=== PATIENT | male | born 1960 | race Caucasian/White ===

== ENCOUNTER 2024-05-21 12:24 | Outpatient (CLI) | payer MEDICARE, SELFPAY ==
--- NOTE | 2024-05-21 12:31 | CA_ITS ---
APPROVED REPORT EXAM: Comprehensive 2D, Doppler, and color-flow Echocardiogram Photolithographic Stripper: TRAMAINE Sparks, RVS Ht: 5 ft 10 in Wt: 258lbs BSA: 2.33 BP: 147/75 mmHg Indications: Smoker, SOA, DM, HTN Echo Enhancing Agent Indication: Endocardial border delineation Agent(s) / Amount(s) Used: Definity 2 cc Comments: Technically limited exam due to patient factors and lung impedance 2D Dimensions IVSd 1.12 cm LVEF (Visual) 61.70 % PWd 1.01 cm LVEF (Louis's) 54.20 % LVDd 4.99 cm LV Volume 129.30 mL LVDs 3.33 cm LV Volume Index 55.262039 mL/m2 M: 34 - 74 Aortic Root 2.98 cm LA Volume 74.50 mL Left Atrium 3.61 cm LA Volume Index 31.439523 mL/m2 (M/F) 16-34 RVID Base (AP4) 4.08 cm (M/F) 2.5-4.1 EF AP4 60.50 % LVOT 1.99 cm (M/F) 1.5-2.5 EF AP2 45.8 % EF BP 54.2 % GL Strain -9.8 % M-Mode Dimensions LVDd 4.99 cm (3.5-5.7) Ao Diam 3.16 cm (2.0-3.7) LVDs 4.62 cm (3.5-5.7) IVSd 1.12 cm (0.6-1.1) PWd 1.01 cm (0.6-1.1) EF (Teich) 37.30% EPSs 1.13 cm FS 23.23% EDV (Teich) 156.80 mL TAPSE 1.82 (<1.7) ESV (Teich) 98.30 mL LV Diastology E Decel Time 242 (160-240 msec) E/A Ratio 0.88 MED E' 8.0 (>= 7 cm/sec) MED A' 9.10 cm/s E'/MED E' Ratio 8.69 (<= 14) LAT E' 6.6 (>= 10 cm/sec) LAT A' 9.10 cm/s E/LAT E' Ratio 10.53 (<= 14) Aortic Valve LVOT Max 110.0 (70-110 cm/s) GARRETT Index 0.97 cm2/m2 LVOT VTI 19.36 cm AoV Peak Abraham. 158.0 (50-130 cm/s) AO Peak GR. 11.00 mmHg AO Mean GR. 5.00 (<5 mmHg) AO VTI 26.6 (18-25 cm) GARRETT (VTI) 2.27 (2.5-4.5 cm2) Mitral Valve MV E Max Abraham. 69.0 (40-130 cm/s) MV A Velocity 79.0 (40-130 cm/s) E/A Ratio 0.88 MV Decel. Time 242 (160-240 ms) Left Ventricle The left ventricle is normal size. The left ventricular systolic function is normal. The left ventricular ejection fraction is within the normal range. There is increased LV wall thickness. The left ventricular diastolic function is normal. No left ventricle thrombus noted on this study. LVEF is 60%. Right Ventricle The right ventricle is normal size. The right ventricular systolic function is normal. Atria The left atrium size is normal. The right atrium size is normal. There is no Doppler evidence of interatrial shunt. Aortic Valve The aortic valve is mildly thickened. There is no aortic valvular stenosis. No aortic regurgitation is present. Mitral Valve The mitral valve is normal in structure. No evidence of mitral valve stenosis. Trace mitral regurgitation. Tricuspid Valve Tricuspid valve is grossly normal in structure and function. Trace tricuspid regurgitation. There is insufficient TR jet to estimate RVSP. Pulmonic Valve The pulmonary valve is normal in structure. Trace pulmonic regurgitation. Great Vessels The aortic root is normal in size. The ascending aorta is not well-visualized. IVC is normal in size and collapses >50% with inspiration. Pericardium There is no pericardial effusion. Other Information Study Quality: Technically Difficult Conclusion Technically difficult study due to poor acoustic windows. Normal biventricular systolic function. No significant valvular stenosis or regurgitation. Electronically signed by : Ramonita Patel MD 05/30/2024 00:54:49
--- NOTE | 2024-05-21 12:32 | US_ITS ---
FINAL REPORT CLINICAL HISTORY: claudication, Smoker, DM, HTN, HLD, Weak pedal pulses FINDINGS: LOWER EXTREMITY SEGMENTAL PRESSURE MEASUREMENTS FINDINGS: Pressure indices are as follows: RIGHT LOWER EXTREMITY: Thigh: 0.47 Calf: 0.39 Ankle, posterior tibial artery: 0.85 Ankle, dorsalis pedis: 0.69 Toe: 0.28 ALYSE: 0.85 Comments: Although pressure indices are increased more distally, this is most likely due to falsely elevated pressure indices. Values suggest advanced PVD. LEFT LOWER EXTREMITY: Thigh: 0.69 Calf: 0.69 Ankle, posterior tibial artery: Noncompressible Ankle, dorsalis pedis: 0.93 Toe: 0.42 ALYSE: 0.93 Comments: Although pressure indices are increased more distally, this is most likely due to falsely elevated pressure indices. Values suggest moderate PVD. IMPRESSION: Abnormal exam. Consider CTA runoff for further evaluation. Reviewed, Interpreted and Dictated by Rodrigo Vera MD Transcribed by Ginger Jacob Authenticated and . [facility]
[2024-05-21] MEDS: DEFINITY US ECHO CONTRAST 2ML INJ 2 MG IV (14:08)
== END 2024-05-21 23:59 | disposition home or self-care (01) ==
PROVIDERS: PCP Student in an Organized Health Care Education/Training Program; Visit Provider Physician Assistant
DX: R09.89 Other specified symptoms and signs involving the circulatory and respiratory systems (principal); I73.9 Peripheral vascular disease, unspecified; R60.0 Localized edema; I10 Essential (primary) hypertension; R06.00 Dyspnea, unspecified; R94.31 Abnormal electrocardiogram [ECG] [EKG]
CPT/HCPCS: 93306; 93923; Q9957

== ENCOUNTER 2024-05-26 13:18 | Outpatient (CLI) | payer MEDICARE, SELFPAY ==
[2024-05-26 14:06] LABS: Chloride 96 mmol/L (98-107); Potassium 4.7 mmoL/L (3.5-5.1); Sodium 132 mmol/L (136-145)
[2024-05-26 14:09] LABS: Anion Gap 12.7 mEq/L (5-15); Blood Urea Nitrogen 19 mg/dl (9-20); Carbon Dioxide 28 mmol/L (22.0-30.0); Estimated Glomerular Filt Rate 97 ml/min (>60); GFR (African American) 118 ML/MIN (>60); Glucose 389 mg/dl (74-100)
== END 2024-05-26 23:59 | disposition home or self-care (01) ==
LOC: LAB 13:19
PROVIDERS: Visit Provider Physician Assistant
DX: I73.9 Peripheral vascular disease, unspecified (principal); R68.89 Other general symptoms and signs; Z72.0 Tobacco use; M79.674 Pain in right toe(s); R94.31 Abnormal electrocardiogram [ECG] [EKG]; R06.09 Other forms of dyspnea; I10 Essential (primary) hypertension; R60.0 Localized edema
CPT/HCPCS: 80048

== ENCOUNTER 2024-06-17 12:42 | Outpatient (CLI) | payer MEDICARE, SELFPAY ==
--- NOTE | 2024-06-17 12:43 | CT_ITS ---
FINAL REPORT CLINICAL HISTORY: abnormal ALYSE, PAD COMPARISON: None FINDINGS: Post contrast axial imaging of the aorta and bilateral lower extremity was obtained and reviewed. This study was performed with techniques to keep radiation doses as low as reasonably achievable (ALARA). Individualized dose reduction techniques using automated exposure control or adjustment of mA and/or kV according to the patient's size were employed. There is no evidence of aortic aneurysm. There is no evidence of aortic stenosis, although mild atherosclerotic disease is noted in the abdominal aorta. The celiac axis, superior mesenteric artery and inferior mesenteric artery are patent without significant stenosis. There is no evidence of renal artery stenosis. There is atherosclerotic disease in the common iliac arteries bilaterally. There is mild to moderate atherosclerotic disease in the external iliac arteries bilaterally. The proximal right internal iliac artery is patent, however just distal to the first bifurcation a branch is occluded. Right: The common femoral artery is patent with moderate stenosis just proximal to the bifurcation. The profunda artery is patent without evidence of stenosis. The proximal superficial femoral artery contains a short segment with 70% stenosis. There is dense calcification in the superficial femoral artery that somewhat limits evaluation. In the mid and distal thigh, there is high-grade stenosis of the right superficial femoral artery. The popliteal artery is patent. There is three-vessel runoff to the ankle. Left: The left common femoral artery and profunda are patent without significant stenosis. The proximal left superficial femoral artery contains a moderate stenosis with at least 50% diameter stenosis in the thigh. The popliteal artery is patent. There is three-vessel runoff to the mid calf, with peroneal artery nonvisualization past the mid calf. Review of the remaining abdomen and pelvis demonstrates a small cystic focus measuring 14 mm in size in the tail of the pancreas, a finding of uncertain significance but follow-up dedicated CT, ultrasound, or MR would be helpful for further evaluation. This could represent a pseudocyst, although a cystic neoplasm is not excluded. There is no fluid collection or acute inflammatory process. IMPRESSION: Mild atherosclerotic disease in the external iliac arteries bilaterally. Moderate areas of stenosis in the right common femoral artery, with 70% stenosis in the proximal right superficial femoral artery. Dense calcified plaque somewhat limits evaluation of this area. There is high-grade stenosis in the mid and distal right thigh as well. There is moderate stenosis in the proximal left superficial femoral artery with at least 50% stenosis in the thigh. There is nonvisualization of the peroneal artery past the mid calf. There is a small cystic focus in the tail of the pancreas, 14 mm in size, that may represent a pseudocyst or cystic neoplasm. Correlation with other imaging modalities is suggested as described above. Reviewed, Interpreted and Dictated by Andie Lebron MD Transcribed by Priti Isidro Authenticated and [facility]
[2024-06-17] MEDS: 0.9 % SODIUM CHLORIDE 50 ML VIAL IV (13:40)
[2024-06-17] MEDS: SODIUM CHLORIDE 0.9% 10ML SYR (RAD ONLY) 10 ML IV (13:40)
[2024-06-17] MEDS: IOPAMIDOL-370 (76%);100ML BOTTLE 120 ML IV (13:40)
== END 2024-06-17 23:59 | disposition home or self-care (01) ==
LOC: RAD 12:43
PROVIDERS: Visit Provider Physician Assistant
DX: M79.674 Pain in right toe(s) (principal); R94.31 Abnormal electrocardiogram [ECG] [EKG]; I73.9 Peripheral vascular disease, unspecified; R06.09 Other forms of dyspnea; I10 Essential (primary) hypertension; R60.0 Localized edema; Z72.0 Tobacco use; R68.89 Other general symptoms and signs
CPT/HCPCS: 75635; Q9967

== ENCOUNTER 2024-06-29 14:15 | Observation (INO) | payer MEDICARE, SELFPAY ==
[2024-06-29] VITALS (18 sets, daily range): BP systolic 122–165; BP diastolic 57–113; PULSE 82–104; RESP 16–22; TEMP 36.5–37.1; O2SAT 90–100; BMI 37.3; BMI 36.5
--- NOTE | 2024-06-29 07:13 | IR_ITS ---
APPROVED REPORT Patient Location: Outpatient PROCEDURES Catheter placement in the abdominal aorta Abdominal aortography Repositioning of the catheter in the abdominal aorta Bilateral iliofemoral runoff Catheter placement in the right popliteal artery Right popliteal artery selective angiogram Intravascular lithotripsy to the right superficial femoral artery and right popliteal artery Drug-coated balloon angioplasty to the right popliteal artery and right superficial femoral artery INDICATION Abnormal ALYSE, Ellis claudication class III, Occluded right SFA and right popliteal artery Informed consent was obtained prior to the procedure. COMPLICATIONS NONE Estimated Blood Loss: LESS THAN 10 ML TECHNIQUE 1% lidocaine used to anesthetize the left femoral groin. The left femoral artery was accessed via the Seldinger technique. A 5 Vietnamese sheath is placed in the left femoral artery and a pigtail catheter was advanced to the abdominal aorta where abdominal aortography was performed. The catheter was then repositioned and bilateral iliofemoral runoff was performed. Following this a rim catheter was advanced to the abdominal aorta and used to cannulate the right common iliac artery where an advantage wire was advanced to the right superficial femoral artery. The short sheath was exchanged for a long 6 Vietnamese destination sheath. Therapeutic heparin was administered giving a therapeutic ACT and the advantage wire was advanced through the occlusion into the right popliteal artery. A trailblazer catheter was advanced over the advantage wire and the wire removed with selective angiography of the right SFA showing intraluminal placement of the catheter. Following this a 300 cm run-through wire was advanced and a 6 mm x 60 mm shockwave balloon was advanced and delivered at 5 and 6 maura for a total of 400 pulsations up and down the right SFA and right popliteal artery. Following this a 6 mm x 250 mm drug-coated balloon was deployed at 8 maura for 3 minutes in the right popliteal artery and right superficial femoral artery. An additional 6 mm x 40 mm drug-coated balloon was then advanced proximally overlapping where the first balloon was placed and then deployed at 10 maura. Following this the apparatus was removed the groin is reprepped closure change sheath was removed hemostasis was partially achieved with Angio-Seal device therefore manual pressure was delivered achieving good hemostasis and the patient was transferred to the postop putting in stable condition ANGIOGRAPHIC RESULTS This abdominal aorta is widely patent bilateral common iliac arteries have mild 10% atheromatous plaque while the bilateral internal iliac arteries are widely patent with mild 10 to 20% plaque. The bilateral external iliac arteries have 10 to 20% stenoses in the bilateral common femoral arteries are widely patent The right profunda femoris artery has proximal and mid vessel 50% stenosis while the right superficial femoral artery is severely diseased in the proximal segment with diffuse 80 to 90% stenoses and then occluded proximally. It reconstitutes and then the popliteal artery is patent and gives rise to severely diseased anterior tibialis artery posterior tibialis artery and peroneal arteries. There is reconstitution of the anterior and posterior tibialis artery with flow into the right foot The left profunda femoris artery is moderately and diffusely atheromatous. The left superficial femoral artery has proximal concentric 80% stenoses with 80 to 90% calcified stenoses throughout Warner's canal. The popliteal artery does receive inline flow and is widely patent. It gives rise to small caliber and diffusely diseased but patent anterior tibialis artery posterior tibialis artery and peroneal arteries. There is three-vessel runoff below the knee on the left side from small caliber diffusely diseased vessels IMPRESSION Peripheral artery disease as described above Successful intravascular lithotripsy followed by drug-coated balloon angioplasty of a chronically occluded right SFA and right popliteal artery Persistent severe disease in the left popliteal artery and superficial femoral artery as described above Infrageniculate small caliber diffuse disease PLAN 1. Aspirin and Plavix 2. LDL less than 55 achieved high intensity statin 3. Avoidance of tobacco products 4. Risk factor modification 5. Physical therapy with rehabilitation 6. In 2 to 4 weeks patient can be brought back to the [facility] and undergo repeat revascularization of the left SFA and left popliteal artery if he has persistent symptoms or if the left leg prohibits adequate ambulation now that the right leg has been revascularized Electronically signed by : Myron Snyder MD 06/30/2024 12:56:56
[2024-06-29 09:17] LABS: Basophils # 0.1 K/mm3 (0-0.2); Basophils % 0.7 % (0.1-2.0); Eosinophils # 0.2 K/mm3 (0.0-0.4); Eosinophils % 2.2 % (0.1-12.0); Hematocrit 44.3 % (42.0-52.0); Hemoglobin 14.8 g/dL (14.1-18.0); Lymphocytes # 1.5 K/mm3 (0.7-4.5); Lymphocytes % 15.2 % (10-50); Mean Corpuscular HGB Conc 33.4 g/dL (31.8-35.4); Mean Corpuscular Hemoglobin 30.4 pg (27.0-31.2); Mean Platelet Volume 9.6 fl (7.4-10.4); Monocytes # 0.8 K/mm3 (0.1-1.0); Monocytes % 7.9 % (1.7-9.3); Neutrophils # 7.3 K/mm3 (1.8-7.8); Neutrophils % 73.2 % (37.0-80.0); Platelet Count 235 K/mm3 (142-424); Red Blood Count 4.87 M/mm3 (4.60-6.20); Red Cell Distribution Width 12.6 % (11.5-17.5)
[2024-06-29 09:27] LABS: Chloride 99 mmol/L (98-107); Potassium 4.4 mmoL/L (3.5-5.1); Sodium 135 mmol/L (136-145)
[2024-06-29 09:30] LABS: Anion Gap 13.4 mEq/L (5-15); Blood Urea Nitrogen 16 mg/dl (9-20); Carbon Dioxide 27 mmol/L (22.0-30.0); Creatinine Clearance Estimated 124 mL/min (50-200); Estimated Glomerular Filt Rate 85 ml/min (>60); GFR (African American) 103 ML/MIN (>60); Glucose 309 mg/dl (74-100)
[2024-06-29] MEDS: FENTANYL 100MCG/2ML VIAL 50 MCG IV (11:33)
[2024-06-29] MEDS: MIDAZOLAM HCL 1MG/ML 5ML VIAL 1 MG IV (11:33)
[2024-06-29] MEDS: 0.9 % SODIUM CHLORIDE 500 ML 25 ML IV (11:34)
[2024-06-29] MEDS: LIDOCAINE 1% 10ML MDV 20 ML IJ (11:34)
[2024-06-29] MEDS: HEPARIN 1,000 UNITS/500ML NS (CATH LAB) 3000 UNIT IV (11:34)
[2024-06-29] MEDS: diphenhydrAMINE 50MG/ML VIAL 50 MG IV (11:34)
--- NOTE | 2024-06-29 14:28 | EXP.HP ---
History of Present Illness *Admission Date: 06/29/24 *Reason for visit:: Peripheral artery disease *History of present illness: 64-year-old male with diabetes and tobacco use disorder. Having PAD with claudication. Was brought in for elective lower extremity arteriogram with runoff due to recent CTA obtained showing moderate areas of stenosis in the common right femoral artery with 70% stenosis in the proximal right superficial femoral artery. High-grade stenosis also identified in mid and distal right thigh as well. Patient tolerated procedure well with improvement in blood flow to lower extremity. Due to bleeding in left groin and need for observation overnight, medicine consulted for admission and further management. On arrival to the floor, patient's is at bedside. He is in no acute distress. No active bleeding at this time. Hemodynamically stable. Laying flat on room air. [facility] Disclaimer: The information contained in this section may have been updated after the patient was seen, as this information can be updated by other users. Medical History Abnormal electrocardiogram [ECG] [EKG] Claudication Edema of both lower extremities HTN (hypertension) Type 2 diabetes mellitus Family History Mother Diabetes Brother Diabetes Social History Smoking Status: Current every day smoker tobacco type: cigarettes packs per day: 2 alcohol intake: current alcohol intake frequency: 3 or more drinks per day substance use type: denies use current occupational status: other Travel in the last 8 weeks: Inside the [place] marital status: Have you lived/traveled outside [place] in past 30 days?: No Contact w/someone who lives/traveled outside US past 30 days?: No Exposure to someone with infectious disease in past 14 days?: No Do you have a fever (greater than 100.4 F or 38 C)?: No Have you tested positive for COVID-19: No Exposed to someone with COVID-19 in past 14 days?: No Do you have a sore throat?: No Do you have a cough?: No Do you have any weakness?: No Do you have any diarrhea?: No Are you experiencing any unusual bleeding?: No Do you have any muscle aches/pain?: No Do you have any abdominal pain?: No Are you experiencing loss of taste or smell?: No Review of Systems Review of Systems Review of systems (narrative): 14 point review of systems performed, pertinent positives and negatives as per [facility] Meds Home Medications and Allergies Home Medications ?Medication ?Instructions ?Recorded ?Confirmed ?Type dapagliflozin propanediol 10 mg 10 mg PO DAILY 05/12/24 06/29/24 History tablet (Farxiga) furosemide 40 mg tablet (Lasix) 40 mg PO DAILY #30 tabs 05/12/24 06/29/24 Rx glipizide 10 mg tablet 10 mg PO BID 05/12/24 06/29/24 History hydrocodone 7.5 mg-acetaminophen 1 tab PO QID 05/12/24 06/29/24 History 325 mg tablet losartan 100 mg tablet 100 mg PO DAILY 05/12/24 06/29/24 History metformin 750 mg tablet,extended 750 mg PO BID 05/12/24 06/29/24 History release 24 hr potassium chloride 20 mEq 20 meq PO DAILY #30 tabs 05/12/24 06/29/24 Rx tablet,extended release rosuvastatin 5 mg tablet 5 mg PO DAILY 05/12/24 06/29/24 History New Prescriptions to Start Prescriptions: Allergies Allergy/AdvReac Type Severity Reaction Status Date / Time No Known Allergies Allergy Verified 06/23/24 14:57 Exam Data for Last 24 hours Vital signs and Labs for Last 24 Hours: Temp Pulse Resp BP Pulse Ox O2 Del Method 98.7 F 104 H 20 165/112 H 90 L Room Air 06/29/24 09:10 06/29/24 14:19 06/29/24 14:19 06/29/24 14:19 06/29/24 14:19 06/29/24 14:19 Laboratory Results - last 24 hr 06/29/24 09:11: WBC 10.0, RBC 4.87, Hgb 14.8, Hct 44.3, MCV 91.0, MCH 30.4, MCHC 33.4, RDW 12.6, Plt Count 235, MPV 9.6, Neut % (Auto) 73.2, Lymph % (Auto) 15.2, [place] % (Auto) 7.9, Eos % (Auto) 2.2, Baso % (Auto) 0.7, Neut # (Auto) 7.3, Lymph # (Auto) 1.5, [place] # (Auto) 0.8, Eos # (Auto) 0.2, Baso # (Auto) 0.1, Sodium 135 L, Potassium 4.4, Chloride 99, Carbon Dioxide 27, Anion Gap 13.4, BUN 16, Creatinine 0.90, Estimated Creat Clear 124, Estimated GFR 85, Est GFR ( Amer) 103, Glucose 309 H, Calcium 9.0 I & O for Last 24 hours: Intake & Output 06/26/24 06/27/24 06/28/24 06/29/24 23:59 23:59 23:59 23:59 Weight 117.934 kg Constitutional Constitutional: no acute distress, obese, chronically ill appearing and cooperative *Routine HEENT Exam Head: Present normocephalic Eye: Present EOMI and PERRL ENT: Present mucous membranes moist *Routine Neck Exam Neck: Present supple; Absent lymphadenopathy *Routine Respiratory Exam Respiratory: Present CTA bilaterally; Absent rhonchi, wheezes or crackles *Routine Cardiovascular Exam Cardiovascular: Present RRR *Routine Abdominal Exam Abdominal: Present soft, normoactive bowel sounds and distended; Absent tenderness *Routine Rectal Exam Rectal:: deferred *Routine Genitalia Exam Genitalia:: deferred *Routine Extremities Exam Extremities: Absent cyanosis, clubbing or edema Comments: Pulses palpable bilateral lower extremities. Stable hematoma left groin *Routine Skin Exam Skin: Present warm; Absent rash *Routine Neurological Exam Neurological: Present alert, oriented X3 and moving all extremities; Absent altered mental status Assessment and Plan *Assessment and plan (1) Peripheral arterial disease: Status: Acute Category: Medical Code(s): I73.9 - Peripheral vascular disease, unspecified (2) Abnormal ankle brachial index (ALYSE): Status: Acute Category: Medical Code(s): R68.89 - Other general symptoms and signs (3) Tobacco abuse: Status: Acute Category: Medical Code(s): Z72.0 - Tobacco use (4) Obesity, Class II, BMI 35-39.9: Status: Acute Category: Medical Code(s): E66.812 - Obesity, class 2 (5) Diabetes mellitus with diabetic neuropathy: Status: Acute Qualifiers: Diabetes mellitus type: type 2 Diabetes mellitus termite control representative insulin use: without termite control representative use Qualified Code(s): E11.40 - Type 2 diabetes mellitus with diabetic neuropathy, unspecified Category: Medical Code(s): E11.40 - Type 2 diabetes mellitus with diabetic neuropathy, unspecified (6) HTN (hypertension): Status: Acute Qualifiers: Hypertension type: primary hypertension Qualified Code(s): I10 - Essential (primary) hypertension Category: Medical Code(s): I10 - Essential (primary) hypertension (7) Claudication: Status: Acute Category: Medical Code(s): I73.9 - Peripheral vascular disease, unspecified Plan Mr. Josue 64-year-old male with peripheral artery disease and tobacco use disorder along with diabetes. Had abnormal ALYSE with claudication. Brought to [facility] for lower extremity angiography. Access through left groin, manipulation of arteries in right lower extremity. Discussed case with cardiology, request admission overnight for monitoring of left groin and serial labs. I agreed to admit for further management. Hemoglobin normal at 14.8, white count 10.0. Kidney function normal with BUN 16, creatinine 0.9. Repeat labs ordered for the morning. Cardiology consulted. Problems addressed as follows: Peripheral artery disease Hypertension hyperlipidemia -Elective outpatient procedure with access through left femoral artery. Unilateral selective angiography performed with runoff and right lower extremity. Found to have difficult arteriosclerotic disease. Necessitating shock lithotripsy and drug-eluting balloon PCI. -Hemoglobin normal at this time at 14.8. -Patient has good pulses right lower extremity. Had significant bleeding initially in left femoral region, appears to have stopped with Perclose technique. Will monitor overnight for hematoma and bleeding - Resume home medication for hyperlipidemia and hypertension including Lipitor 10 mg nightly, dapagliflozin 10 mg daily, Lasix 40 mg daily, irbesartan 150 mg daily as formulary conversion for home losartan -Heparinized in [facility] -Cardiology consulted to evaluate patient in the morning -Continue Crestor 5 mg daily -Initiate therapy with aspirin and Plavix. Diabetes -Initiate sliding scale insulin with fingersticks ACHS. Glucose 200-300 on arrival to the floor -A1c ordered and pending; TSH pending -Continue home regimen with dapagliflozin 10 mg daily. Metformin 750 mg twice daily. Hold glipizide. 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
[2024-06-29] MEDS: PROPOFOL 10MG/ML 20ML VIAL 300 MG IV (14:34)
[2024-06-29] MEDS: HEPARIN 1,000 UNITS/ML 10ML VIAL (CATH LAB) 10000 UNIT IV (14:42)
[2024-06-29] MEDS: IOPAMIDOL-250 (51%) 100ML BOT 275 ML IV (14:46)
[2024-06-29 14:49] LABS: CATHL Activated Clotting Time 239 SEC (74-125)
--- NOTE | 2024-06-29 14:50 | PC.NURSE ---
arrived by sreeer from [facility]
[2024-06-29] MEDS: APAP/HYDROCODONE 325MG/7.5MG TAB 1 TAB PO ×2 (16:26→20:35)
[2024-06-29] MEDS: humaLOG 100 UNITS/ML 10ML VIAL (SSI) SUBCUT ×2 (16:44→21:12)
[2024-06-29 16:45] LABS: POC Glucose,Bedside 226 (70-110)
--- NOTE | 2024-06-29 17:42 | PC.NURSE ---
pt lying flat in bed watching television. pt has a cath site to the left groin with gauze and tegaderm in place. no drainage noted. pt has been extensively educated on the need to lie flat until 2019. pt agreeable and has been pleasant since arriving to the floor. complained of back pain once and was treated per jul. pt fsbs 226, so was treated per jul with 4u ss insulin. purewick in place. pt has had a good appetite and tolerated well with no n/v. pt hypertensive. post ops to be completed until 2134. no needs at this time. call light within reach.
[2024-06-29] MEDS: ATORVASTATIN 10MG TABLET 10 MG PO (20:36)
[2024-06-29 20:53] LABS: POC Glucose,Bedside 235 (70-110)
[2024-06-30] VITALS: BP 133/76; PULSE 89; RESP 17; TEMP 36.8; O2SAT 93
[2024-06-30] MEDS: APAP/HYDROCODONE 325MG/7.5MG TAB 1 TAB PO (00:10)
[2024-06-30 04:00] VITALS: BP 124/61; PULSE 89; RESP 17; TEMP 36.6; O2SAT 94; BMI 37.2
--- NOTE | 2024-06-30 04:48 | PC.NURSE ---
Patient is alert and oriented x4. Patient was observed to have eyes closed, respirations even and unlabored on room air, and no apparent distress for the majority of the night. At the beginning of this shift, the patient appeared to be quite frustrated with his current overall situation; patient was reassured and calmed down by staff. He has complained of significant, chronic back pain a couple times this shift of which [place] was given per JUL. Left femoral cath site was assessed; localized bruising was noted, +2 pulses were equal, and no bleeding/drainage was present. Dressing remains clean, dry, and intact. Post-op vital signs and post-angio assessments were completed this shift. Patient was able to gradually sit upright after 20:20; he tolerated this well. His purewick was removed this shift; urinal/toilet for elimination needs. Diminished lung sounds were heard with auscultation; auscultation of his heart and bowels were within normal findings. Scheduled medications administered per JUL. Dr Baltazar (patient verbally refused Diet drinks) was given at bedtime; he refused a snack, ice water also encouraged. [facility] glucose checks performed. Vital signs stable. At this time, the patient is resting in bed without any further complaints. No acute changes noted thus far. Call light within reach.
[2024-06-30 05:53] LABS: POC Glucose,Bedside 180 (70-110)
[2024-06-30 06:26] LABS: Basophils % 0.5 % (0.1-2.0); Eosinophils # 0.2 K/mm3 (0.0-0.4); Eosinophils % 2.2 % (0.1-12.0); Hematocrit 38.1 % (42.0-52.0); Lymphocytes # 1.4 K/mm3 (0.7-4.5); Lymphocytes % 16.9 % (10-50); Mean Corpuscular HGB Conc 32.8 g/dL (31.8-35.4); Mean Corpuscular Hemoglobin 30.7 pg (27.0-31.2); Mean Corpuscular Volume 93.6 fl (80-94); Mean Platelet Volume 9.6 fl (7.4-10.4); Monocytes # 0.7 K/mm3 (0.1-1.0); Monocytes % 8.6 % (1.7-9.3); Neutrophils # 5.8 K/mm3 (1.8-7.8); Neutrophils % 71.2 % (37.0-80.0); Platelet Count 191 K/mm3 (142-424); Red Blood Count 4.07 M/mm3 (4.60-6.20); Red Cell Distribution Width 12.9 % (11.5-17.5); White Blood Count 8.1 K/mm3 (4.8-10.8)
[2024-06-30] MEDS: humaLOG 100 UNITS/ML 10ML VIAL (SSI) SUBCUT (06:36)
[2024-06-30 06:43] LABS: Albumin Level 3.3 g/dl (3.5-5.0); Chloride 106 mmol/L (98-107)
[2024-06-30 06:44] LABS: Potassium 4.1 mmoL/L (3.5-5.1); Sodium 136 mmol/L (136-145)
[2024-06-30 06:46] LABS: Alanine Aminotransferase 21 U/L (12-78); Alkaline Phosphatase 90 U/L (38-126); Anion Gap 8.1 mEq/L (5-15); Aspartate Amino Transferase 27 U/L (17-59); Bilirubin,Total 0.7 mg/dl (0.2-1.3); Blood Urea Nitrogen 9 mg/dl (9-20); Carbon Dioxide 26 mmol/L (22.0-30.0); Creatinine Clearance Estimated 124 mL/min (50-200); Estimated Glomerular Filt Rate 97 ml/min (>60); GFR (African American) 118 ML/MIN (>60); Hemoglobin 12.4 g/dL (14.1-18.0)
[2024-06-30 06:47] LABS: Albumin/Globulin Ratio 1.5 (1.1-1.8); Calcium 8.3 mg/dl (8.4-10.2); Globulin 2.2 g/dL (1.3-3.2); Glucose 197 mg/dl (74-100); Total Protein,Serum 5.5 g/dl (6.3-8.2)
[2024-06-30 07:16] LABS: Thyroid Stimulating Hormone 1.86 uIU/mL (0.465-4.68)
[2024-06-30 08:00] VITALS: BP 120/64; PULSE 99; RESP 18; TEMP 36.8; O2SAT 95
--- NOTE | 2024-06-30 08:36 | HMH.PHAINT1 ---
Pharmacy Intervention Comments: home medication list verified using list from outpatient pharmacy and pt interview
[2024-06-30] MEDS: CLOPIDOGREL 75MG TAB 75 MG PO (09:03)
[2024-06-30] MEDS: DAPAGLIFLOZIN PROPANEDIOL 10 MG TABLET PO (09:03)
[2024-06-30] MEDS: IRBESARTAN 150MG TAB 150 MG PO (09:03)
[2024-06-30] MEDS: ASPIRIN EC 81MG TABLET 81 MG PO (09:03)
[2024-06-30] MEDS: FUROSEMIDE 40 MG TABLET PO (09:03)
[2024-06-30] MEDS: POTASSIUM CHLORIDE 20MEQ TAB 20 MEQ PO (09:03)
[2024-06-30] MEDS: METFORMIN 500MG TABLET 750 MG PO (09:08)
[2024-06-30 09:17] LABS: Hemoglobin A1C 10.6 % (4.0-6.0)
--- NOTE | 2024-06-30 10:53 | P.PN_ITS ---
Subjective Subjective Date: 06/30/24 Time: 08:30 Principal diagnosis: PAD stenting Interval history: 64 yo WM admitted after right LE stenting yesterday due to difficulty closing access site in left femoral artery. No significant bleeding overnight. Pt states he is feeling fine. Wants to go home. Exam Data for Last 24 hours Vital signs and Labs for Last 24 Hours: Temp Pulse Resp BP Pulse Ox O2 Del Method O2 Flow Rate 98.2 F 99 H 18 120/64 95 Room Air 6 06/30/24 08:00 06/30/24 08:00 06/30/24 08:00 06/30/24 08:00 06/30/24 08:00 06/30/24 10:38 06/29/24 14:35 Laboratory Results - last 24 hr 06/29/24 14:38: Activated Clotting Time 239 H* 06/29/24 16:28: POC Glucose 226 H 06/29/24 20:39: POC Glucose 235 H 06/30/24 05:46: POC Glucose 180 H 06/30/24 05:51: WBC 8.1, RBC 4.07 L, Hgb 12.4 L D, Hct 38.1 L, MCV 93.6, MCH 30.7, MCHC 32.8, RDW 12.9, Plt Count 191, MPV 9.6, Neut % (Auto) 71.2, Lymph % (Auto) 16.9, [place] % (Auto) 8.6, Eos % (Auto) 2.2, Baso % (Auto) 0.5, Neut # (Auto) 5.8, Lymph # (Auto) 1.4, [place] # (Auto) 0.7, Eos # (Auto) 0.2, Baso # (Auto) 0.0, Sodium 136, Potassium 4.1, Chloride 106, Carbon Dioxide 26, Anion Gap 8.1, BUN 9 D, Creatinine 0.80, Estimated Creat Clear 124, Estimated GFR 97, Est GFR ( Amer) 118, Glucose 197 H D, Hemoglobin A1c 10.6 H, Calcium 8.3 L, Magnesium 2.0, Total Bilirubin 0.7, AST 27, ALT 21, Alkaline Phosphatase 90, Total Protein 5.5 L, Albumin 3.3 L, Globulin 2.2, Albumin/Globulin Ratio 1.5, TSH 1.86 I & O for Last 24 hours: Intake & Output 06/27/24 06/28/24 06/29/24 06/30/24 11:59 11:59 11:59 11:59 Intake Total 1504 / 1504 Output Total 1100 / 1100 Balance 404 / 404 Weight 260 lb 260 lb Constitutional Constitutional: no acute distress *Routine Extremities Exam Comments: Both legs warm with equal pulses. Progress Note: A&P Assessment and plan (1) Peripheral arterial disease: Status: Acute (2) Abnormal ankle brachial index (ALYSE): Status: Acute (3) Tobacco abuse: Status: Acute (4) Obesity, Class II, BMI 35-39.9: Status: Acute (5) Diabetes mellitus with diabetic neuropathy: Status: Acute (6) HTN (hypertension): Status: Acute (7) Claudication: Status: Acute Assessment and Plan Assessment and Plan for All Diagnoses:: Stable from cardiac standpoint for discharge home. Renal functions stable. Mild drop in Hgb from 14.8 down to 12.4. Resume home meds and follow up in our office in one week.
--- NOTE | 2024-06-30 11:31 | EXP.DC.SUM ---
General Admission date:: 06/29/24 HPI HPI HPI: 64-year-old male with diabetes and tobacco use disorder. Having PAD with claudication. Was brought in for elective lower extremity arteriogram with runoff due to recent CTA obtained showing moderate areas of stenosis in the common right femoral artery with 70% stenosis in the proximal right superficial femoral artery. High-grade stenosis also identified in mid and distal right thigh as well. Patient tolerated procedure well with improvement in blood flow to lower extremity. Due to bleeding in left groin and need for observation overnight, medicine consulted for admission and further management. On arrival to the floor, patient's is at bedside. He is in no acute distress. No active bleeding at this time. Hemodynamically stable. Laying flat on room air. Hospital Course Hospital Course Hospital Course: Elio Josue is a 64-year-old male with peripheral artery disease and tobacco use disorder along with diabetes. Had abnormal ALYSE with claudication. Brought to [facility] for lower extremity angiography. Access through left groin, manipulation of arteries in right lower extremity. Discussed case with cardiology, request admission overnight for monitoring of left groin and serial labs. #Peripheral artery disease #Hypertension #Hyperlipidemia ? Elective outpatient procedure with access through left femoral artery. Unilateral selective angiography performed with runoff and right lower extremity. Found to have difficult arteriosclerotic disease. Necessitating shock lithotripsy and drug-eluting balloon PCI. ? Patient has good pulses right lower extremity. Had significant bleeding initially in left femoral region, which has since stabilized. ? Unfortunately, patient left hospital and AMA before discharge could be processed. Continue home aspirin, Plavix, rosuvastatin, losartan. #Diabetes ? Hemoglobin A1c 10.6. ? Continue home metformin 750 mg twice daily, Farxiga 10 mg, glipizide 10 mg twice daily. ? Patient will need tighter control of diabetes, will need to follow-up with PCP. Exam Data for Last 24 hours Vital signs and Labs for Last 24 Hours: Temp Pulse Resp BP Pulse Ox O2 Del Method O2 Flow Rate 98.2 F 99 H 18 120/64 95 Room Air 6 06/30/24 08:00 06/30/24 08:00 06/30/24 08:00 06/30/24 08:00 06/30/24 08:00 06/30/24 10:38 06/29/24 14:35 Laboratory Results - last 24 hr 06/29/24 14:38: Activated Clotting Time 239 H* 06/29/24 16:28: POC Glucose 226 H 06/29/24 20:39: POC Glucose 235 H 06/30/24 05:46: POC Glucose 180 H 06/30/24 05:51: WBC 8.1, RBC 4.07 L, Hgb 12.4 L D, Hct 38.1 L, MCV 93.6, MCH 30.7, MCHC 32.8, RDW 12.9, Plt Count 191, MPV 9.6, Neut % (Auto) 71.2, Lymph % (Auto) 16.9, [place] % (Auto) 8.6, Eos % (Auto) 2.2, Baso % (Auto) 0.5, Neut # (Auto) 5.8, Lymph # (Auto) 1.4, [place] # (Auto) 0.7, Eos # (Auto) 0.2, Baso # (Auto) 0.0, Sodium 136, Potassium 4.1, Chloride 106, Carbon Dioxide 26, Anion Gap 8.1, BUN 9 D, Creatinine 0.80, Estimated Creat Clear 124, Estimated GFR 97, Est GFR ( Amer) 118, Glucose 197 H D, Hemoglobin A1c 10.6 H, Calcium 8.3 L, Magnesium 2.0, Total Bilirubin 0.7, AST 27, ALT 21, Alkaline Phosphatase 90, Total Protein 5.5 L, Albumin 3.3 L, Globulin 2.2, Albumin/Globulin Ratio 1.5, TSH 1.86 I & O for Last 24 hours: Intake & Output 06/27/24 06/28/24 06/29/24 06/30/24 23:59 23:59 23:59 23:59 Intake Total 240 / 784 1264 / 1264 Output Total 1100 / 1100 0 / 0 Balance -860 / -316 1264 / 1264 Weight 115.666 kg 117.934 kg Constitutional Constitutional: no acute distress *Routine HEENT Exam Head: Present normocephalic Eye: Present EOMI and PERRL ENT: Present mucous membranes moist *Routine Neck Exam Neck: Present supple; Absent lymphadenopathy *Routine Respiratory Exam Respiratory: Present CTA bilaterally *Routine Cardiovascular Exam Cardiovascular: Present RRR *Routine Abdominal Exam Abdominal: Present soft and normoactive bowel sounds; Absent tenderness *Routine Extremities Exam Extremities: Absent cyanosis, clubbing or edema Comments: Both legs warm with equal pulses. Moderate bruising over left femoral cath site, but no active signs of extravasation. *Routine Skin Exam Skin: Present warm; Absent rash *Routine Neurological Exam Neurological: Present alert and oriented X3 Results Data Completed and Pending Labs on day of discharge: Labs from last 24 hours 06/30/24 06/30/24 06/29/24 05:51 05:46 20:39 WBC 8.1 RBC 4.07 L Hgb 12.4 L D Hct 38.1 L MCV 93.6 MCH 30.7 MCHC 32.8 RDW 12.9 Plt Count 191 MPV 9.6 Neut % (Auto) 71.2 Lymph % (Auto) 16.9 [place] % (Auto) 8.6 Eos % (Auto) 2.2 Baso % (Auto) 0.5 Neut # (Auto) 5.8 Lymph # (Auto) 1.4 [place] # (Auto) 0.7 Eos # (Auto) 0.2 Baso # (Auto) 0.0 Activated Clotting Time Sodium 136 Potassium 4.1 Chloride 106 Carbon Dioxide 26 Anion Gap 8.1 BUN 9 D Creatinine 0.80 Estimated Creat Clear 124 Estimated GFR 97 Est GFR ( Amer) 118 Glucose 197 H D POC Glucose 180 H 235 H Hemoglobin A1c 10.6 H Calcium 8.3 L Magnesium 2.0 Total Bilirubin 0.7 AST 27 ALT 21 Alkaline Phosphatase 90 Total Protein 5.5 L Albumin 3.3 L Globulin 2.2 Albumin/Globulin Ratio 1.5 TSH 1.86 06/29/24 06/29/24 16:28 14:38 WBC RBC Hgb Hct MCV MCH MCHC RDW Plt Count MPV Neut % (Auto) Lymph % (Auto) [place] % (Auto) Eos % (Auto) Baso % (Auto) Neut # (Auto) Lymph # (Auto) [place] # (Auto) Eos # (Auto) Baso # (Auto) Activated Clotting Time 239 H* Sodium Potassium Chloride Carbon Dioxide Anion Gap BUN Creatinine Estimated Creat Clear Estimated GFR Est GFR ( Amer) Glucose POC Glucose 226 H Hemoglobin A1c Calcium Magnesium Total Bilirubin AST ALT Alkaline Phosphatase Total Protein Albumin Globulin Albumin/Globulin Ratio TSH DS: Diagnosis Discharge Diagnosis (1) Peripheral arterial disease: Status: Acute Code(s): I73.9 - Peripheral vascular disease, unspecified (2) Abnormal ankle brachial index (ALYSE): Status: Acute Code(s): R68.89 - Other general symptoms and signs (3) Tobacco abuse: Status: Acute Code(s): Z72.0 - Tobacco use (4) Obesity, Class II, BMI 35-39.9: Status: Acute Code(s): E66.812 - Obesity, class 2 (5) Diabetes mellitus with diabetic neuropathy: Status: Acute Code(s): E11.40 - Type 2 diabetes mellitus with diabetic neuropathy, unspecified Qualifiers: 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 use: without usp use Diabetes mellitus type: type 2 Qualified Code(s): E11.40 - Type 2 diabetes mellitus with diabetic neuropathy, unspecified (6) HTN (hypertension): Status: Acute Code(s): I10 - Essential (primary) hypertension Qualifiers: Hypertension type: primary hypertension Qualified Code(s): I10 - Essential (primary) hypertension (7) Claudication: Status: Acute Code(s): I73.9 - Peripheral vascular disease, unspecified Meds Home Medications and Allergies Home Medications ?Medication ?Instructions ?Recorded ?Confirmed ?Type dapagliflozin propanediol 10 mg 10 mg PO DAILY 05/12/24 07/06/24 History tablet (Farxiga) furosemide 40 mg tablet (Lasix) 40 mg PO DAILY #30 tabs 05/12/24 07/06/24 Rx glipizide 10 mg tablet 10 mg PO BID 05/12/24 07/06/24 History hydrocodone 7.5 mg-acetaminophen 1 tab PO QID 05/12/24 07/06/24 History 325 mg tablet losartan 100 mg tablet 100 mg PO DAILY 05/12/24 07/06/24 History metformin 750 mg tablet,extended 750 mg PO BID 05/12/24 07/06/24 History release 24 hr rosuvastatin 5 mg tablet 5 mg PO DAILY 05/12/24 07/06/24 History aspirin 81 mg tablet,delayed 81 mg PO DAILY #30 tabs 06/30/24 07/06/24 Rx release clopidogrel 75 mg tablet (Plavix) 75 mg PO DAILY #30 tabs 06/30/24 07/06/24 Rx spironolactone 25 mg tablet 25 mg PO DAILY #30 tabs 07/06/24 07/06/24 Rx New Prescriptions to Start Prescriptions: Allergies Allergy/AdvReac Type Severity Reaction Status Date / Time No Known Allergies Allergy Verified 07/06/24 14:17 Discharge Plan Disposition Patient Disposition: Left Against Medical Advice Condition: Fair Patient Discharge Instructions Print Language: [place] Providers Admit Provider: Myron Snyder Attending Provider: Samy Fleming
--- NOTE | 2024-06-30 11:35 | PC.NURSE ---
This nurse notified per charge while off the floor that patients room was found to be vacant with IV laying on the bed. pt was awaiting discharge and this nurse had spoke with patient and doctor regarding discharge order and the process of discharge. On last rounds patient was noted to be up ambulating around room with significant other at bedside.
== END 2024-06-30 11:15 | disposition left against medical advice (07) ==
LOC: 2ND 14:16
PROVIDERS: Admitting Provider Internal Medicine; Visit Provider Internal Medicine Adolescent Medicine
DX: I70.211 Atherosclerosis of native arteries of extremities with intermittent claudication, right leg (principal); I77.1 Stricture of artery; I10 Essential (primary) hypertension; M79.674 Pain in right toe(s); R94.31 Abnormal electrocardiogram [ECG] [EKG]; R06.09 Other forms of dyspnea; R60.0 Localized edema; R93.5 Abnormal findings on diagnostic imaging of other abdominal regions, including retroperitoneum; E66.812 Obesity, class 2; E11.40 Type 2 diabetes mellitus with diabetic neuropathy, unspecified; F17.210 Nicotine dependence, cigarettes, uncomplicated; Z68.37 Body mass index [BMI] 37.0-37.9, adult; Z79.84 Long term (current) use of oral hypoglycemic drugs; Z79.899 Other long term (current) drug therapy; Z83.3 Family history of diabetes mellitus; E78.5 Hyperlipidemia, unspecified
CPT/HCPCS: 80048; 80053; 82962; 83036; 83735; 84443; 85025; 85347; 99152; 99153; C1725; C1760; C1766; C1769; C1887; C1894; C2623; C9764; G0378; J1200; J1644; J2250; J3010; Q9966